=== PATIENT | female | born 1960 | race Caucasian/White ===

== ENCOUNTER → 2019-09-02 | Outpatient (CLI) | payer BC ==
--- NOTE | 2019-09-03 08:09 | CT ---
EXAMINATION TYPE: CT soft tissue neck w con DATE OF EXAM: 09/02/2019 7:58 PM COMPARISON: None HISTORY: Parotid mass, RT side, marker used. Pt c/o mass since February. C/o pressure sensation in are a CT DLP: 452 mGycm Automated exposure control for dose reduction was used. CONTRAST: CT scan of the neck is performed following with IV Contrast, patient injected with 100 mL of Isovue 3 00. Axial images are obtained, coronal and sagittal reformatted images are reviewed. FINDINGS: Dental amalgam causes streak artifact over portions of the exam. Airway: No gross abnormality seen. Parotid/submandibular glands: The right parotid gland shows a soft tissue mass which measures approx imately 2.2 cm in greatest transverse dimension by approximately 2.3 cm in AP dimension by 2.2 cm in cephalad to caudal dimension, somewhat boomerang-shaped noted posterior to the vein at this level. Th e mass appears confined to the right parotid gland. There are local nodes which are not enlarged by C T size criteria. Carotid/Vascular Structures: Patent Osseous Structures: Degenerative disc changes are present visualized spine. There is reversal the nor mal cervical lordosis. Other: The thyroid is bulky and heterogeneous likely due to multinodular goiter or pulmonary arteries enlarged, correlate for possible pulmonary artery hypertension. IMPRESSION: Right parotid mass as described.
== END | disposition home or self-care (01) ==
LOC: RADCTMAIN 19:28
PROVIDERS: ATTEND Otolaryngology
DX: R22.1 Localized swelling, mass and lump, neck (principal)
CPT/HCPCS: 70491; Q9967

== ENCOUNTER → 2019-09-03 | Outpatient (CLI) | payer BC ==
--- NOTE | 2019-09-04 16:00 | ENG ---
ELECTRONYSTAGMOGRAM REPORT INDICATIONS: Dizziness, ongoing for 20 years, gradual onset, getting worse and is constant. Dizziness, imbalance can occur with position changes such as rolling over right or left, going from lying to a seated position, looking up or head back position or bending over, head down position. Patient reports pressure in the right ear and no hearing loss. VNG FINDINGS: Saccades shows intact peak velocities, accuracies, and latencies. Gaze with fixation shows no nystagmus in any of the directions of gaze including centrally with vision denied. Tracking shows no breakups. Optokinetic nystagmus shows no asymmetries. Static position testing in 6 different positions with eyes opened and with vision denied shows no nystagmus elicited. [place]-Hallpike maneuvers shows no reported dizziness with either ear under most periods. Caloric testing shows 8% unilateral right caloric weakness, which is within normal limits. Unremarkable VNG study. MMJENNIFER / IJN: [id number] /
== END | disposition home or self-care (01) ==
LOC: NEUROMAIN 07:50
PROVIDERS: ATTEND Otolaryngology
DX: R42 Dizziness and giddiness (principal)
CPT/HCPCS: 92537; 92540

== ENCOUNTER 2019-09-25 09:41 | Day surgery (SDC) | payer BC ==
[2019-09-23 16:15] VITALS: BMI 32.0
[~2019-09-25 09:41] MED LIST: LACTATED RINGERS 1,000 ML IV SCH
[2019-09-25 10:21] VITALS: TEMP 98.6
[2019-09-25] MEDS ORDERED: PROPOFOL 10 MG/ML 20 ML VIAL IV ONE (11:20)
--- NOTE | 2019-09-25 11:32 | P.PCN ---
Date of Procedure: 09/25/19 Procedure(s) Performed: BRIEF HISTORY: Patient is a 59-year-old pleasant white female scheduled for an elective colonoscopy as a part of screening for colorectal neoplasia. PROCEDURE PERFORMED: Colonoscopy. PREOPERATIVE DIAGNOSIS: Screening for colon cancer IV sedation per Anesthesia. PROCEDURE: After informed consent was obtained, the patient, was brought into the en doscopy unit. IV sedation was administered by Anesthesia under continuous monitoring. Digital rectal examination was normal. Initially the Olympus CF-160 flexible video colonoscope was then inserted in the rectum, gradually advanced into the cecum without any difficulty. Careful examination was performed as the scope was gradually being withdrawn. Ileocecal valve and the appendiceal orifice were visualized and appeared normal. Prep was excellent. Mucosa of the cecum, ascending colon, transverse colon, descending colon, sigmoid colon, and rectum appeared normal. Retroflexion was performed in the rectum and no lesions were seen. The patient tolerated the procedure well. IMPRESSION: Normal-appearing colon from rectum to cecum with no evidence of colorectal neoplasia . RECOMMENDATIONS: Findings of this examination were discussed with the patient as well as her family. She was advised to have a repeat screening colonoscopy in 10 years.
[2019-09-25 11:56] VITALS: BP 127/78; PULSE 87; RESP 18
== END 2019-09-25 12:10 | disposition home or self-care (01) ==
LOC: ORWHC2ENDO 09:41
PROVIDERS: ATTEND Internal Medicine Gastroenterology
DX: Z12.11 Encounter for screening for malignant neoplasm of colon (principal); K21.9 Gastro-esophageal reflux disease without esophagitis; Z79.899 Other long term (current) drug therapy; Z98.890 Other specified postprocedural states
CPT/HCPCS: J2704; G0121